=== PATIENT | male | born 1975 | race Two or more races ===

== ENCOUNTER 2023-04-10 15:21 | Emergency (ER) | payer MEDICAID ==
[~2023-04-10] VITALS: Ht 170.2 cm; Wt 84.1 kg
[2023-04-10] MEDS ORDERED: ATEN-72 PO (15:27)
[2023-04-10] MEDS ORDERED: MORPHINE SULFATE 2 MG/ML SYRINGE IVP ONE ×2 (16:15→20:30)
[2023-04-10] MEDS ORDERED: ONDANSETRON HCL 4 MG/2 ML VIAL IVP ONE (16:15)
[2023-04-10] MEDS ORDERED: POVIDONE-IODINE 10% 120 ML SOLUTION TP ONE (16:30)
[2023-04-10 16:41] LABS: BASOPHILS % (AUTO) 0.4 % (0.0-2.0); EOSINOPHILS % (AUTO) 1.4 % (1.0-6.0); HEMATOCRIT 42.8 % (41-53); HEMOGLOBIN 14.4 g/dL (13.5-17.5); LYMPHOCYTES # (AUTO) 2.7 K/uL (1.0-4.8); LYMPHOCYTES % (AUTO) 23.4 % (22.0-44.0); MEAN CORPUSCULAR HEMOGLOBIN 31.7 pg (26.0-34.0); MEAN CORPUSCULAR HGB CONC 33.6 G/dL (31.0-37.0); MEAN CORPUSCULAR VOLUME 94 fL (80-100); MONOCYTES # (AUTO) 0.7 K/uL (0.1-1.0); MONOCYTES % (AUTO) 6.4 % (2.0-9.0); NEUTROPHILS # (AUTO) 7.8 K/uL (1.8-7.7); NEUTROPHILS % (AUTO) 68.4 % (40.0-70.0); PLATELET COUNT (AUTO) 286 K/uL (150-450); RED BLOOD CELL COUNT(AUTO) 4.54 MIL/uL (4.50-5.90); RED CELL DISTRIBUTION WIDTH 13.9 % (11.5-14.5); WHITE BLOOD COUNT (AUTO) 11.4 K/uL (4.5-11.0)
[2023-04-10] MEDS ORDERED: PERTUSS(ACELL),DIPH,TET VAC/PF 0.5 ML SYRINGE IM. ONE (16:45)
[2023-04-10 16:48] LABS: ANION GAP 10 mmol/L (8-16); CARBON DIOXIDE 25 mmol/L (22-29); CHLORIDE 103 mmol/L (98-107); CREATININE 0.88 mg/dL (0.60-1.30); GLOMERULAR FILTR. RATE CALC > 60 mL/min (>60); GLUCOSE,RANDOM 156 mg/dL (70-110); POTASSIUM 3.8 mmol/L (3.5-5.1); SODIUM SERUM 138 mmol/L (136-145); UREA NITROGEN, BLOOD 22 mg/dL (7-18)
[2023-04-10 16:53] LABS: ALANINE AMINOTRANSFERASE 22 U/L (12-78); ALBUMIN 3.9 g/dL (3.4-5.0); ALKALINE PHOSPHATASE 81 U/L (46-116); ASPARTATE AMINOTRANSFERASE 17 U/L (15-37); BILIRUBIN,TOTAL 0.3 mg/dL (0.1-1.0); TOTAL PROTEIN, SERUM 7.4 g/dL (6.4-8.2)
[2023-04-10] MEDS ORDERED: LIDOCAINE 1% 10 ML VIAL ID ONE (19:15)
[2023-04-10] MEDS ORDERED: BACITRACIN 0.9 GM PACKET OINTMENT TP ONE (20:30)
[2023-04-10] MEDS ORDERED: CEPHALEXIN MONOHYDRATE 500 MG CAPSULE PO ONE (20:30)
[2023-04-10 20:43] VITALS: BP 158/85; PULSE 84; RESP 18; TEMP 98.8
[2023-04-10] MEDS ORDERED: DOXY-354 PO (20:59)
[2023-04-10] MEDS ORDERED: CEPH-558 PO (20:59)
[2023-04-10] MEDS ORDERED: HYDR-4723 PO (20:59)
[2023-04-10] MEDS ORDERED: IBUP-1492 PO (21:26)
[2023-04-10] MEDS ORDERED: HYDR-4072 PO (21:46)
== END 2023-04-10 23:17 | disposition home or self-care (01) ==
LOC: EMS 15:21
DX: S68.121A Partial traumatic metacarpophalangeal amputation of left index finger, initial encounter (principal); I10 Essential (primary) hypertension; W27.0XXA Contact with workbench tool, initial encounter; Y93.89 Activity, other specified; Y92.89 Other specified places as the place of occurrence of the external cause; Y99.8 Other external cause status
CPT/HCPCS: 99284; 96374; 96375; 80053; 85025; 36415; 73140; 90715; 90471; 12002; 96376; J2270; J2405; J3490